=== PATIENT | male | born 1940 | race Caucasian/White ===

== ENCOUNTER 2018-02-15 10:21 | Inpatient (IN) | payer MEDICARE ==
[~2018-02-15] VITALS: Ht 182.9 cm; Wt 87.6 kg
--- NOTE | ~2018-02-15 | EKG ---
[place], [place] ELECTROCARDIOGRAM REPORT NAME: LANCE CARTAGENA UNIT #: [id number] ROOM: 511 DOCTOR: CHRISTIN DRAFT REPORT BIRTHDATE: [birth year] [facility] Test Date: 2018-02-15 Test Time: 10:37:41 Pat Name: LANCE CARTAGENA Department: Room: 511 Gender: M Senior [employer]: MERCEDES : 1940 Requested By: AMY WHEELER Order Number: [id number] Reading MD: Fox Joe MD Measurements Intervals [place] Rate: 63 P: [place]: QRS: 3 QRSD: 144 T: 165 QT: 545 QTc: 559 Interpretive Statements Atrial fibrillation IVCD, consider atypical LBBB Baseline wander in lead(s) V4 No previous ECG available for comparison Electronically Signed On 02-15-2018 13:05:38 PDT by Fox Joe MD CM:EKGRPT:ELECTROCARDIOGRAM REPORT [id number] AMY WHEELER EPIPHANY DRAFT REPORT AMY WHEELER
--- NOTE | ~2018-02-15 | CON ---
[place], [place] REPORT OF CONSULTATION NAME[facility]ARTAGENA [id number] UNIT #: [id number] ROOM: 511 DOCTOR: CLINT COX MD BIRTHDATE: [birth year] DOS: 02/15/2018 CARDIOLOGY CONSULTATION REASON FOR CONSULTATION: Dyspnea, orthopnea and abdominal pressure. HISTORY OF PRESENT ILLNESS: The patient is a 77-year-old man who was seen at his bedside today, 02/15/2018, with his in attendance. He has a history of hypertrophic obstructive cardiomyopathy and did undergo a myomectomy at the [facility] in [place] in 1999. He has done well since then. He stated that he did not require a bypass at the time. He is followed by a hand nailer in [place] who saw him several weeks ago and told him that things were fine. At the time of that visit, the hand nailer switched him from losartan with hydrochlorothiazide to plain losartan without a diuretic. The patient states that over the last weeks, he has felt gradually worse. He has noticed swelling in his abdomen and in his legs. He is not sure if he has gained any weight. He has noticed that his abdomen feels like there is pressure and his appetite has decreased. He has been more short of breath, he has had more orthopnea and he has had more dyspnea with exertion. The patient came to the local area about a week or two ago to visit with family and since then he has noticed that his symptoms have gotten dramatically worse. He does admit that he has been eating out more and has been eating more salt in that time. Even under normal circumstances, he is not particularly careful with his salt, but has been eating a lot more salty foods lately. His breathing became more difficult and therefore he came to the Emergency Room today. His chest x-ray showed no obvious pleural effusions or vascular congestion. His troponin was noted to be minimally elevated at 0.063. He was therefore admitted to the hospital for further assessment. PAST MEDICAL HISTORY: Includes: 1. Hypertrophic cardiomyopathy. 2. Status post myomectomy in 1999 at the [facility] in [place]. 3. Essential hypertension. 4. Obstructive lung disease. 5. Type 2 diabetes mellitus. 6. Permanent atrial fibrillation. 7. Remote history of cigarette abuse. The patient has been abstinent since 1973. MEDICATIONS: Prior to admission included fluticasone nasal spray, glipizide 5 mg daily, Atrovent by inhaler nasally twice a day as directed, DuoNeb by nebulizer 4 times a day as needed, losartan 50 mg daily, metformin 500 mg 2 tablets twice a day, pravastatin 40 mg at bedtime, primidone 50 mg twice a day, propranolol 40 mg every day and warfarin 10 mg on Sunday and Sunday and 7.5 mg 5 days a week on . ALLERGIES: The patient has no known drug allergies. [place], [place] REPORT OF CONSULTATION NAME: LANCE CARTAGENA UNIT #: [id number] ROOM: 511 DOCTOR: CLINT COX MD BIRTHDATE: [birth year] Please note, the patient was on losartan with hydrochlorothiazide until about 5 weeks ago after which the hydrochlorothiazide part of the drug was stopped. REVIEW OF SYSTEMS: The patient denies diplopia or loss of vision. He denies lightheadedness or syncope. He denies focal weakness. He denies fevers, chills or sweats. He thinks that he may have gained a little weight, but is not sure how much and he rarely weighs himself. He denies nausea or vomiting. He has had a cough. He has noticed a lot of belching and he is passing a lot of flatus lately. He denies hemoptysis or hematemesis. He denies blood in his stools or urine. He denies any skin rashes. He does not think he has been swollen in his ankles in the last day or two. He denies heat or cold intolerance. He has had orthopnea which has gotten worse lately. Remainder of the review of systems is negative except as noted above. FAMILY HISTORY: Negative for early coronary disease. SOCIAL HISTORY: The patient is and lives with his . He was a smoker, but quit in the . He does drink 2 beers daily. PHYSICAL EXAMINATION: GENERAL: The patient is a well-nourished white male, awake, alert and oriented. He does look younger than his stated age. VITAL SIGNS: Pulse is 57 and irregularly irregular, blood pressure is 142/68. He is afebrile. He weighs 87.6 kg and has a body mass index of 26.2. HEENT: Normocephalic and atraumatic. Extraocular muscles are intact. Sclerae are clear. Pupils are equal, round and react to light. The oral mucosa is moist. Tongue is midline. NECK: Supple. He does have jugular distention when sitting at a 45 degree angle and he does have hepatojugular reflux. Carotids are full. I heard no bruits. He had no neck or supraclavicular masses. LUNGS: Respirations are unlabored. His chest has decreased breath sounds at the bases with bibasilar rales. He has presacral edema present. There is no chest wall tenderness. CARDIOVASCULAR: His heart has an irregularly irregular rhythm. There were no murmurs or gallops. The PMI could not be felt. He has no precordial heave, lift or thrill. ABDOMEN: Distended and there is a slight fluid wave. His liver is slightly enlarged on exam, but it is not tender. EXTREMITIES: His ankles show 1+ edema bilaterally. Pedal pulses are full and equal bilaterally. I reviewed his electrocardiogram, which showed atrial fibrillation at a rate of 63 and an atypical left bundle branch block. Hemoglobin is 13, hematocrit 38.8, there are 13,200 white cells and 217,000 platelets. INR is 4.0. Sodium 143, potassium 4.2, chloride 109, CO2 of 24, BUN 22, creatinine 1.23. Troponin is 0.063. IMPRESSIONS: 1. Acute on chronic diastolic congestive heart failure. 2. History of hypertrophic cardiomyopathy. [place], [place] REPORT OF CONSULTATION NAME[facility]ANCE CARTAGENA [facility]: [id number] UNIT #: [id number] ROOM: 511 DOCTOR: CLINT COX MD BIRTHDATE: [birth year] 3. Status post myomectomy in 1999. 4. Essential hypertension. 5. Type 2 diabetes mellitus. PLAN: The patient appears to have gone into congestive heart failure because of stopping his hydrochlorothiazide and then consuming an increased salt diet while on his trip to the local area. In addition, he tells me that he often does "push fluids" because he thought it was good for him. I think at this point, we will be diuresing him overnight with IV furosemide. An echocardiogram is pending and will be reviewed. I think he probably will require long-term use of diuretics. I also did speak to him about his dietary habits, especially regarding salt intake and fluid intake. We will follow his serial troponin levels. Most likely, they are elevated because of his acute on chronic heart failure rather than an acute coronary event. We thank the hospitalist physicians for asking our advice regarding the patient's care. CLINT COX MD CM:CONSTR:REPORT OF CONSULTATION 1640 02/16/18 0205 interface
[2018-02-15 10:22] VITALS: BP 185/89
[2018-02-15 10:45] LABS: BASO # 0.1 10*3/uL (0.0-0.1); BASO % 0.5 % (0.0-1.0); EOS # 0.3 10*3/uL (0.0-0.4); EOS % 2.3 % (1.0-4.0); HEMATOCRIT 38.8 % (42.0-52.0); LYMPH # 1.5 10*3/uL (1.3-4.4); LYMPH % 11.3 % (27.0-41.0); MEAN CORPUSCULAR HGB 32.2 pg (27.0-31.0); MEAN CORPUSCULAR HGB CONC 33.5 g/dl (33.0-37.0); MEAN PLATELET VOLUME 10.6 fl (9.6-12.3); MONO # 0.9 10*3/uL (0.1-1.0); MONO % 6.7 % (3.0-9.0); NEUT # 10.4 10*3/uL (2.3-7.9); NEUT % 78.6 % (47.0-73.0); PLATELET COUNT AUTOMATED 217 10*3/uL (130-400); RED BLOOD COUNT 4.04 10*6/uL (4.50-5.90); RED CELL DISTRI WIDTH 14.6 % (0-14.5); WHITE BLOOD COUNT 13.2 10*3/uL (4.8-10.8)
[2018-02-15 10:59] LABS: ACT PARTIAL THROMBO TIME 32.7 SECONDS (20.8-31.5)
[2018-02-15 11:05] LABS: ALBUMIN 3.7 gm/dl (3.1-4.5); ALKALINE PHOSPHATASE 47 U/L (45-117); BUN 22 mg/dl (7-24); CHLORIDE 109 mmol/L (98-107); CREATININE 1.23 mg/dL (0.70-1.30); LIPASE 93 U/L (73-393); POTASSIUM 4.2 mmol/L (3.5-5.1); SGOT/AST 20 IU/L (3-35); SGPT/ALT 28 U/L (12-78); SODIUM 143 mmol/L (136-145); TOTAL PROTEIN 7.7 gm/dL (6.4-8.2)
[2018-02-15 11:08] LABS: TROPONIN I 0.063 ng/ml (<0.045)
[2018-02-15 11:26] VITALS: BP 180/78
[2018-02-15 11:40] VITALS: BP 142/68
[2018-02-15] MEDS ORDERED: GLUCOTROL5 MG PO (12:08)
[2018-02-15] MEDS ORDERED: 24 HOUR ALLER15.8 ML NAS (12:08)
[2018-02-15] MEDS ORDERED: LOSARTAN-HCTZ1 EACH PO (12:09)
[2018-02-15] MEDS ORDERED: IPRATROPIUM BRO15 ML NAS (12:09)
[2018-02-15] MEDS ORDERED: Ipratropium Brom3 ML INH (12:09)
[2018-02-15] MEDS ORDERED: METFORMIN HYDR500 MG PO (12:10)
[2018-02-15] MEDS ORDERED: PRAVACHOL40 MG PO (12:10)
[2018-02-15] MEDS ORDERED: PRIMIDONE50 MG PO (12:10)
[2018-02-15] MEDS ORDERED: PROPRANOLOL HCL40 M1 PO (12:11)
[2018-02-15] MEDS ORDERED: COUMADIN10 M1 PO (12:12)
[2018-02-15] MEDS ORDERED: COUMADIN7.5 M1 PO (12:12)
[2018-02-15 16:00] VITALS: BP 138/74
[2018-02-15 20:00] VITALS: BP 161/79
[2018-02-16] VITALS: BP 138/74
[2018-02-16 06:36] LABS: BASO # 0.1 10*3/uL (0.0-0.1); BASO % 0.5 % (0.0-1.0); EOS # 0.3 10*3/uL (0.0-0.4); EOS % 2.4 % (1.0-4.0); HEMOGLOBIN 12.3 g/dl (14.0-18.0); MEAN CORPUSCULAR HGB 31.8 pg (27.0-31.0); MEAN CORPUSCULAR HGB CONC 34.2 g/dl (33.0-37.0); MEAN PLATELET VOLUME 11.1 fl (9.6-12.3); MONO # 1.1 10*3/uL (0.1-1.0); MONO % 8.8 % (3.0-9.0); NEUT # 8.4 10*3/uL (2.3-7.9); NEUT % 70.7 % (47.0-73.0); PLATELET COUNT AUTOMATED 200 10*3/uL (130-400); RED BLOOD COUNT 3.87 10*6/uL (4.50-5.90); RED CELL DISTRI WIDTH 14.2 % (0-14.5); WHITE BLOOD COUNT 11.9 10*3/uL (4.8-10.8)
[2018-02-16 06:49] LABS: INTERNATIONAL NORM RATIO 2.8 (2.0-3.5)
[2018-02-16 06:53] LABS: ALBUMIN 3.5 gm/dl (3.1-4.5); BUN 26 mg/dl (7-24); CHLORIDE 107 mmol/L (98-107); POTASSIUM 3.6 mmol/L (3.5-5.1); SGOT/AST 20 IU/L (3-35); SGPT/ALT 23 U/L (12-78); SODIUM 142 mmol/L (136-145); TOTAL PROTEIN 6.7 gm/dL (6.4-8.2)
[2018-02-16 07:02] LABS: ALKALINE PHOSPHATASE 46 U/L (45-117); CHOLESTEROL 86 mg/dL (<200); CREATININE 1.31 mg/dL (0.70-1.30); HDL CHOLESTEROL 33 mg/dl (40-60); LDL CHOLESTEROL 28 mg/dL (9-159); PHOSPHOROUS 3.9 mg/dL (2.5-4.9); THYROID STIM HORMONE (HS) 0.854 uIU/ml (0.358-4.75); TRIGLYCERIDES 123 mg/dl (<150); VLDL CHOLESTEROL 25 mg/dL (6-40)
[2018-02-16 08:00] VITALS: BP 128/78
[2018-02-16 12:00] VITALS: BP 140/90
[2018-02-16] MEDS ORDERED: KLOR-CON M1010 ME1 PO (14:27)
[2018-02-16] MEDS ORDERED: PANTOPRAZOLE SO40 MG PO (14:27)
[2018-02-16] MEDS ORDERED: LOPRESSOR25 MG PO (14:27)
[2018-02-16] MEDS ORDERED: COUMADIN7.5 M1 PO (14:27)
[2018-02-16] MEDS ORDERED: LASIX20 MG PO (14:27)
[2018-02-16] MEDS ORDERED: ASPIRIN ADULT L81 M2 PO (14:27)
== END 2018-02-16 16:29 | disposition home or self-care (01) | DRG 391 ==
LOC: ED 10:21 → 5E 11:23 → EDHOLD 11:23 → 5E 11:27
PROVIDERS: Internal Medicine; Nurse Practitioner Family
DX: K21.9 Gastro-esophageal reflux disease without esophagitis (principal); I50.43 Acute on chronic combined systolic (congestive) and diastolic (congestive) heart failure; D68.69 Other thrombophilia; I47.1 Supraventricular tachycardia; I42.1 Obstructive hypertrophic cardiomyopathy; I11.0 Hypertensive heart disease with heart failure; J44.9 Chronic obstructive pulmonary disease, unspecified; I48.2 Chronic atrial fibrillation; R00.1 Bradycardia, unspecified; D72.829 Elevated white blood cell count, unspecified; D64.9 Anemia, unspecified; E11.65 Type 2 diabetes mellitus with hyperglycemia; E80.6 Other disorders of bilirubin metabolism; R74.8 Abnormal levels of other serum enzymes; I08.3 Combined rheumatic disorders of mitral, aortic and tricuspid valves; I27.20 Pulmonary hypertension, unspecified; Z79.01 Long term (current) use of anticoagulants; Z79.899 Other long term (current) drug therapy; Z87.891 Personal history of nicotine dependence